=== PATIENT | male | born 1990 | race Caucasian/White ===

== ENCOUNTER 2020-11-09 12:45 | Day surgery (SDCO) | payer OTHER ==
[~2020-11-09] VITALS: Ht 190.5 cm; Wt 137.1 kg
[~2020-11-09 12:45] MED LIST: BUPROPION XL150 MG PO; DESVENLAFAXINE50 M3 PO; LISINOPRIL-HCT1 EAC2 PO; LITHIUM CARBON450 MG PO; PROPRANOLOL HCL20 MG PO; QUETIAPINE FUM100 MG PO; REXULTI2 MG PO; VITAMIN D-40010 MCG PO
[2020-11-09 13:58] LABS: BASOPHIL 0.2 % (0-2); EOSINOPHIL 0 % (0-5); HCT 46.1 % (42.0-52.0); HGB 16.6 g/dl (13.2-18.0); MCH 31.3 pg (25.0-31.0); MONOCYTE 8.8 % (0-12); MPV 11.6 fL (6.0-9.5); NEUTROPHIL 78.4 % (41-80); NRBC 0; PLT 262 K/uL (150-400); RDW 12.8 % (11.5-14.0); WBC 20.9 K/uL (4.0-10.5)
[2020-11-09 14:08] LABS: BUN/CREAT RATIO (CALC) 21.4 RATIO; CREATININE 1.31 mg/dL (0.67-1.17); GLOBULIN (CALCULATION) 3.8 g/dL; MAGNESIUM 1.7 mg/dL (1.8-2.4); POTASSIUM 2.7 mmol/L (3.5-5.1); TOTAL PROTEIN 8.8 g/dL (6.4-8.2)
[2020-11-09 15:32] LABS: LACTIC ACID 1.7 mmol/L (0.4-1.9)
[2020-11-09 16:01] LABS: BILIRUBIN NEGATIVE (NEGATIVE); BLOOD NEGATIVE Ery/uL (NEGATIVE); CLARITY CLEAR (CLEAR); COLOR YELLOW (YELLOW); GLUCOSE (U) NORMAL (NORMAL); LEUKOCYTES NEGATIVE Leu/uL (NEGATIVE); NITRITE NEGATIVE (NEGATIVE); PROTEIN TRACE (LOW) mg/dL (NEGATIVE); UROBILINOGEN 0.2 mg/dL (0.2-1.0)
[2020-11-09 16:06] LABS: BARBITURATES NEGATIVE (NEGATIVE); ECSTASY (MDMA) NEGATIVE (NEGATIVE); MARIJUANA (THC) NEGATIVE (NEGATIVE); METHADONE NEGATIVE (NEGATIVE); OPIATES NEGATIVE (NEGATIVE)
[2020-11-09 16:07] LABS: AMPHETAMINES NEGATIVE (NEGATIVE); OXYCODONE NEGATIVE (NEGATIVE)
[2020-11-09 16:08] LABS: BACTERIA TRACE; SQUAMOUS EPITHELIAL CELLS RARE
[2020-11-09] MEDS ORDERED: VIIBRYD PO (18:04)
[2020-11-09] MEDS ORDERED: ZESTORETIC 10-1 EACH PO (18:07)
[2020-11-10 06:11] LABS: BASOPHIL 0.4 % (0-2); EOSINOPHIL 0.1 % (0-5); HGB 14.3 g/dl (13.2-18.0); LYMPHOCYTE 13.8 % (15-48); MCH 31.2 pg (25.0-31.0); MCHC 34.9 g/dL (32.0-36.0); MCV 89.3 fL (78.0-100.0); MONOCYTE 9.7 % (0-12); NEUTROPHIL 75.7 % (41-80); NRBC 0; PLT 197 K/uL (150-400); RBC 4.59 M/uL (4.70-6.00); RDW 12.9 % (11.5-14.0); WBC 12.6 K/uL (4.0-10.5)
[2020-11-10 06:25] LABS: BILIRUBIN - TOTAL 1.1 mg/dL (0.2-1.0); BUN/CREAT RATIO (CALC) 15.7 RATIO; CREATININE 1.15 mg/dL (0.67-1.17); GLOBULIN (CALCULATION) 3.2 g/dL; MAGNESIUM 1.8 mg/dL (1.8-2.4); POTASSIUM 3.5 mmol/L (3.5-5.1); TOTAL PROTEIN 7.2 g/dL (6.4-8.2)
--- NOTE | 2020-11-11 03:13 | NUR ---
PATIENT HAS COMPLAINED OF PERSISTENT NAUSEA SINCE 212911/10/20. PATIENT WAS GIVEN PO PHENERGAN 25MG AT 1958 TO WHICH ON FOLLOW-UP WAS REPORTED TO HAVE BEEN SLIGHTLY EFFECTIVE INITIALLY. AROUND 2129 THE PATIENT COMPLAINED OF ANXIETY TO WHICH 0.5MG ATIVAN WAS GIVEN PO. 45 MINUTES LATER THE PATIENT CALLED OUT TO REPORT THAT HE WAS STILL NAUSEOUS SO AT 2221 4MG ZOFRAN IV WAS GIVEN WITH MINIMAL RELIEF REPORTED BY THE PATIENT. AT THIS TIME THE PATIENT DID GET SOME REST BUT AWOKE AT 144 NAUSEOUS AND REPORTED DRY HEAVING AND TO BE "ON THE VERGE OF A PANIC ATTACK" AT THE NURSES DESK HE HAD WALKED UP FROM HIS ROOM. I GAVE THE PATIENT 25MG PHENERGAN PO AT 157 AND DISCUSSED THE SITUATION WITH GEETA EVANS APRN AND 1MG ATIVAN IV WAS ORDERED AND ADMINISTERED AT 220. AT THIS TIME THE PATIENT REPORTED THAT HE HAD VOMITTED THE PHENERGAN GIVEN PRIOR AND 50 ML YELLOW EMESIS WITH MEDICATION REMNANTS WAS NOTED. AT THIS TIME I CHOOSE TO ADMINISTER 12.5MG IV PHENERGAN AT 7. UPON FOLLOW UP OF THIS ADMINISTRATION PATIENT DID REPORT THAT HIS ANXIETY AND NAUSEA HAD BECOME MANAGEABLE.
[2020-11-11 05:52] LABS: BASOPHIL 0.5 % (0-2); EOSINOPHIL 0.1 % (0-5); HCT 38.2 % (42.0-52.0); HGB 13.3 g/dl (13.2-18.0); LYMPHOCYTE 21.4 % (15-48); MCH 31.1 pg (25.0-31.0); MCHC 34.8 g/dL (32.0-36.0); MCV 89.3 fL (78.0-100.0); MONOCYTE 8.9 % (0-12); MPV 10.7 fL (6.0-9.5); NEUTROPHIL 68.7 % (41-80); NRBC 0; PLT 172 K/uL (150-400); RBC 4.28 M/uL (4.70-6.00); RDW 12.7 % (11.5-14.0)
[2020-11-11 06:19] LABS: ALBUMIN 3.7 g/dL (3.4-5.0); BILIRUBIN - TOTAL 0.8 mg/dL (0.2-1.0); BUN/CREAT RATIO (CALC) 12.3 RATIO; CREATININE 1.14 mg/dL (0.67-1.17); GLOBULIN (CALCULATION) 3.1 g/dL; POTASSIUM 3.4 mmol/L (3.5-5.1); TOTAL PROTEIN 6.8 g/dL (6.4-8.2)
[2020-11-11] MEDS ORDERED: PHENERGAN25 M1 PO (09:52)
[2020-11-11] MEDS ORDERED: PREVALITE4 GM PO (09:52)
== END 2020-11-11 12:04 | disposition home or self-care (01) ==
LOC: FER 12:45 → FMS 15:08
PROVIDERS: Allergy & Immunology Allergy; Physician Assistant; ADMIT Internal Medicine
DX: K52.9 Noninfective gastroenteritis and colitis, unspecified (principal); K91.5 Postcholecystectomy syndrome; E86.0 Dehydration; E87.6 Hypokalemia; F32.9 Major depressive disorder, single episode, unspecified; F41.9 Anxiety disorder, unspecified; I10 Essential (primary) hypertension; F17.210 Nicotine dependence, cigarettes, uncomplicated; F12.90 Cannabis use, unspecified, uncomplicated; Z90.49 Acquired absence of other specified parts of digestive tract; Z79.899 Other long term (current) drug therapy; Z20.822 Contact with and (suspected) exposure to COVID-19
CPT/HCPCS: 36415; 80053; 80305; 81001; 83605; 83690; 83735; 84132; 85025; 93005; G0378; J2060; J2405; J2550; J3480; J7030; Q0169; U0002